=== PATIENT | female | born 1980 | race Caucasian/White ===

== ENCOUNTER 2017-02-13 09:36 | Outpatient (CLI) | payer BC ==
--- NOTE | 2017-02-13 18:08 | DIAGNOSTIC IMAGING REPORT ---
PROCEDURE: US OB 1ST TRIMESTER W/TRANSVAG INDICATION: NO HEART TONES TECHNIQUE: Lovell scale, color, and spectral Doppler transabdominal and endovaginal sonographic images of the first trimester gravid uterus were obtained. COMPARISON: None. FINDINGS: TRANSABDOMINAL SCANS: The uterus is mildly enlarged and the endometrium contains heterogeneous hyperechoic lace-like material as well as structure which could represent a nonviable pole. The right adnexa is negative for mass. There is a corpus luteum within the left adnexa. No hydronephrosis in either kidney. TRANSVAGINAL SCANS: Trace amount of fluid present within the cervix. Small Nabothian cysts seen. The endometrium is distended measuring up to 26 mm in width and contains heterogeneous hyperechoic material with innumerable tiny cystic changes within it. The material extends down into the lower uterine segment. Color Doppler imaging demonstrates normal myometrial vascularity without significant flow in the material in the endometrium. Left ovary measures 3.9 cm and contains a 1.8 cm involuting dominant follicle. The right ovary was not seen. No suspicious right adnexal mass. No free pelvic fluid. IMPRESSION: 1. No viable intrauterine detected. 2. Abnormal, heterogeneous, multicystic, relatively avascular material within the endometrium in addition to what may be a nonviable pole. This may be missed with retained products of conception, although molar is possible. Correlate with Beta hCG levels. Ectopic much less likely, not entirely excluded. 3. Left ovarian dominant follicle. Nonvisualization of the right ovary. 4. Discussed with Dr. Mcknezie.
== END 2017-02-13 23:00 ==
LOC: US SRH 09:36 → LAB SRH 09:36 → US SRH 10:00
DX: O02.1 Missed abortion (principal)
CPT/HCPCS: 90074; 90197

== ENCOUNTER 2017-02-20 08:13 | Outpatient (CLI) | payer BC | END 2017-02-20 23:00 | disposition home or self-care (01) | LOC: LAB SRH 08:13 | DX: O02.1 Missed abortion (principal) | CPT/HCPCS: 90074; 90197 ==

== ENCOUNTER 2017-03-06 08:55 | Outpatient (CLI) | payer BC | END 2017-03-06 23:00 | disposition home or self-care (01) | LOC: LAB SRH 08:55 | DX: O02.1 Missed abortion (principal) | CPT/HCPCS: 90074; 90197 ==